=== PATIENT | male | born 1945 | race Caucasian/White ===

== ENCOUNTER → 2016-08-10 | Outpatient (CLI) | payer MEDICARE | END | disposition home or self-care (01) | LOC: PCVCCLINIC 13:17 | PROVIDERS: ATTEND Internal Medicine | DX: I73.9 Peripheral vascular disease, unspecified (principal); R06.09 Other forms of dyspnea; I10 Essential (primary) hypertension; E78.00 Pure hypercholesterolemia, unspecified | CPT/HCPCS: 93005; G0463 ==

== ENCOUNTER → 2016-08-23 | Outpatient (CLI) | payer MEDICARE | END | disposition home or self-care (01) | LOC: PCVCIMAG 08:56 | PROVIDERS: ATTEND Internal Medicine | DX: I10 Essential (primary) hypertension (principal); I70.213 Atherosclerosis of native arteries of extremities with intermittent claudication, bilateral legs; K21.9 Gastro-esophageal reflux disease without esophagitis; R06.00 Dyspnea, unspecified; K76.0 Fatty (change of) liver, not elsewhere classified; J30.1 Allergic rhinitis due to pollen; G47.33 Obstructive sleep apnea (adult) (pediatric) | CPT/HCPCS: 93306; 93923; 93925; 93924 ==